=== PATIENT | male | born 1940 ===

== ENCOUNTER 2017-05-28 11:02 | Inpatient (IN) | payer MEDICARE ==
[2017-05-28 11:12] VITALS: BMI 38.4
--- NOTE | 2017-05-28 11:42 | ED PDOC ---
HPI: General Adult Time Seen by Provider: 05/28/17 11:15 Chief Complaint (Nursing): Dizziness/Lightheaded Chief Complaint (Provider): Blood Work-up History Per: Patient, Family (Son) History/Exam Limitations: no limitations Onset/Duration Of Symptoms: Hrs Current Symptoms Are (Timing): Still Present Additional Complaint(s): 77 y/o male with a past medical history of hypertension who presents to the emergency department asymptomatic after sent by the clinic because they need blood work completed before they complete a dialysis on him since he is visiting from [facility] (Patient is well known to PMD who treats him every 2-3 years). Patient states he usually gets dialysis every Saturday, , and Saturday. Denies nausea/vomit, chest pain, dizziness, shortness off breath, or chest pain. No weakness. No fever, cough. No headaches. Nephrology: Dr. Maryanne CALDWELL PMD: Dr. Marek Gupta MD Past Medical History Reviewed: Historical Data, Nursing Documentation, Vital Signs Vital Signs: Last Vital Signs Temp 98.1 F 05/28/17 11:12 Pulse 79 05/28/17 11:12 Resp 18 05/28/17 11:12 BP 157/94 H 05/28/17 11:12 Pulse Ox 98 05/28/17 11:45 - Medical History PMH: HTN, End Stage Renal Disease, Chronic Kidney Disease - Surgical History Other surgeries: dialysis catheter - Family History Family History: States: Unknown Family Hx - Living Arrangements Living Arrangements: With Family - Social History Current smoker - smoking cessation education provided: No Alcohol: None Drugs: Denies - Home Medications Home Medications: Ambulatory Orders Medication Instructions Recorded No Known Home Med 05/28/17 - Allergies Allergies/Adverse Reactions: Allergies Allergy/AdvReac Type Severity Reaction Status Date / Time No Known Allergies Allergy Verified 05/28/17 11:22 Review of Systems ROS Statement: Except As Marked, All Systems Reviewed And Found Negative Cardiovascular: Negative for: Chest Pain Respiratory: Negative for: Shortness of Breath Gastrointestinal: Negative for: Nausea Neurological: Negative for: Dizziness Physical Exam - Reviewed Nursing Documentation Reviewed: Yes Vital Signs Reviewed: Yes - Physical Exam Appears: Positive for: Non-toxic, Uncomfortable Head Exam: Positive for: ATRAUMATIC, NORMAL INSPECTION, NORMOCEPHALIC Skin: Positive for: Normal Color, Warm, Dry Eye Exam: Positive for: Normal appearance, EOMI, PERRL ENT: Positive for: Normal ENT Inspection Neck: Positive for: Normal, Supple Cardiovascular/Chest: Positive for: Regular Rate, Rhythm. Negative for: Murmur Respiratory: Positive for: Normal Breath Sounds. Negative for: Accessory Muscle Use, Respiratory Distress Gastrointestinal/Abdominal: Positive for: Normal Exam, Soft. Negative for: Tenderness Back: Positive for: Normal Inspection. Negative for: L CVA Tenderness, R CVA Tenderness Extremity: Positive for: Normal ROM. Negative for: Tenderness, Pedal Edema Neurologic/Psych: Positive for: Alert, Oriented - Laboratory Results Result Diagrams: 05/28/17 11:40 05/28/17 11:40 Interpretation Of Abn Labs: 5.7 phos; 5.4 K - ECG ECG: Positive for: Interpreted By Me, Viewed By Me ECG Rhythm: Positive for: Nonspecific Changes Interpretation Of Abn EKG: afib O2 Sat by Pulse Oximetry: 98 (RA) Pulse Ox Interpretation: Normal - Progress ED Course And Treament: 1312: Pt. states he has known afib. Does not take meds for it. On no meds. Spoke with Dr. Gupta who will admit to his service and give further orders when pt. reaches floor. Spoke with Dr. Hidalgo who is covering Dr. Mock. Will give dialysis orders on the floor. Agrees with current elevated K tx. Family aware and pt. aware to get anticoagulation. No recent fall, injury or bleeding. Pt. agrees to heparin. Aware of risk of bleeding from it. - Critical Care Total Time (In Min): 30 Documented Critical Care: Time excludes all time spent performint seperately billable procedures Medical Decision Making Medical Decision Making: Time: 11:23 Initial impression: Blood work up Initial plan: --Electrocardiogram STAT --COMP Metabolic Panel --Magnesium STAT --Phosphorous STAT --Troponin I STAT --EKG-ED --CBC w/ differential --IV Insertion --Reevaluation Scribe Attestation: Documented by Kesha Shirley, acting as a scribe for Melvin Finnegan MD. Provider Scribe Attestation: All medical record entries made by the Scribe were at my direction and personally dictated by me. I have reviewed the chart and agree that the record accurately reflects my personal performance of the history, physical exam, medical decision making, and the department course for this patient. I have also personally directed, reviewed, and agree with the discharge instructions and disposition. Disposition - Clinical Impression Clinical Impression: Hyperkalemia, Afib, Renal failure, Hyperphosphatemia Counseled Patient/Family Regarding: Studies Performed, Diagnosis - Disposition Disposition Time: 13:00 Condition: FAIR - Pt Status Changed To: Hospital Disposition Of: Inpatient - Admit Certification Admit to Inpatient:: After my assessment, the patient will require hospitalization for at least two midnights. This is because of the severity of symptoms shown, intensity of services needed, and/or the medical risk in this patient being treated as an outpatient. - POA Present On Arrival: None
[2017-05-28 11:47] LABS: BASO % 0.4 % (0.0-2.0); EOS # 0.7 K/uL (0.0-0.7); EOS % 8.5 % (0.0-4.0); HEMOGLOBIN 10.9 g/dL (12.0-18.0); LYMPH # 1.6 K/uL (1.0-4.3); LYMPH % 17.7 % (20.0-40.0); MEAN CORPUSCULAR HEMOGLOBIN 33.2 pg (27.0-31.0); MEAN CORPUSCULAR HGB CONC 32.5 g/dL (33.0-37.0); MEAN PLATELET VOLUME 8.4 fl (7.2-11.7); MONO # 0.8 K/uL (0.0-0.8); MONO % 8.6 % (0.0-10.0); NEUT # 5.7 K/uL (1.8-7.0); NEUT % 64.8 % (50.0-75.0); NRBC % 0.1 % (0.0-0.0); RBC 3.29 Mil/uL (4.40-5.90); RED CELL DISTRIBUTION WIDTH 17.4 % (11.5-14.5); WHITE BLOOD COUNT 8.8 K/uL (4.8-10.8)
[2017-05-28 11:58] LABS: ALB/GLOB RATIO 1.4 (1.0-2.1); ALBUMIN 4.3 g/dL (3.5-5.0); CALCIUM 9.3 mg/dL (8.4-10.2)
[2017-05-28 12:01] LABS: MAGNESIUM 2.1 MG/DL (1.6-2.3)
[2017-05-28 12:09] LABS: TROPONIN I 0.021 ng/mL (0.00-0.120)
[2017-05-28] MEDS ORDERED: Insulin Regular 100 units/ml SC STA (12:32)
[2017-05-28] MEDS ORDERED: Sod Polystyrene Sulf 15 gm/60 ml Oral Susp PO STA (12:32)
[2017-05-28] MEDS ORDERED: Dextrose 50% SYRINGE Inj (50 ml) IVP ONE (12:32)
[2017-05-28] MEDS ORDERED: Albuterol 0.083% Inhal Sol (2.5 mg/3 mL) UD INH STA (12:33)
[2017-05-28] MEDS ORDERED: Albuterol 0.083% Inhal Sol (2.5 mg/3 mL) UD ONE (13:04)
[2017-05-28] MEDS ORDERED: Insulin Regular 100 units/ml ONE (13:05)
[2017-05-28] MEDS ORDERED: Dextrose 50% SYRINGE Inj (50 ml) ONE (13:05)
[2017-05-28] MEDS ORDERED: Sod Polystyrene Sulf 15 gm/60 ml Oral Susp ONE (13:05)
[2017-05-28] MEDS ORDERED: Heparin 25,000units in D5W 25,000 UNITS/250 ML BAG IV SCH (13:30)
--- NOTE | 2017-05-28 15:17 | CP.PCM.CON ---
History of Present Illness - History of Present Illness History of Present Illness: 77 y/o male with Hx/o ESRD on maintenance HD, HTN, CAD,PTCA/stenting was away for 2 wks visiting [facility] & was receiving dialysis in [facility]. Pt returned yesterday & today went o his dialysis clinic for dialysis & was told that he needed new blood work before they can schedule him for sialysis Pt denies any sob, CP Past Patient History - Past Social History Alcohol: None Drugs: Denies - CARDIAC Hx Cardiac Disorders: Yes (HTN) - PULMONARY Hx Respiratory Disorders: No - NEUROLOGICAL Hx Neurological Disorder: No - HEENT Hx HEENT Problems: No - RENAL Hx Chronic Kidney Disease: Yes (DIALYSIS ,,SAT) - ENDOCRINE/METABOLIC Hx Endocrine Disorders: No - HEMATOLOGICAL/ONCOLOGICAL Hx Blood Disorders: No - INTEGUMENTARY Hx Dermatological Problems: No - MUSCULOSKELETAL/RHEUMATOLOGICAL Hx Musculoskeletal Disorders: No - GENITOURINARY/GYNECOLOGICAL Hx Genitourinary Disorders: No - PSYCHIATRIC Hx Psychophysiologic Disorder: No - SURGICAL HISTORY Hx Surgeries: Yes Other/Comment: LT AV SHUNT (NON FUNCTIONING) - ANESTHESIA Hx Anesthesia: Yes Hx Anesthesia Reactions: No Meds Allergies/Adverse Reactions: Allergies Allergy/AdvReac Type Severity Reaction Status Date / Time No Known Allergies Allergy Verified 05/28/17 11:22 - Medications Medications: Current Medications Heparin Sodium/Dextrose (Heparin 25,000 Units/250ml In D5w) 25,000 units in 250 mls @ 10 mls/hr IV .Q24H [facility] PRN Reason: Protocol Last Admin: 05/28/17 14:50 Dose: 10 mls/hr Physical Exam - Constitutional Appears: No Acute Distress - Head Exam Head Exam: ATRAUMATIC, NORMOCEPHALIC - Eye Exam Eye Exam: Normal appearance Additional comments: No icterus - ENT Exam ENT Exam: Mucous Membranes Moist - Neck Exam Additional comments: JVD + @ 35 degrees - Respiratory Exam Additional comments: Lungs clear - Cardiovascular Exam Cardiovascular Exam: REGULAR RHYTHM - GI/Abdominal Exam Additional comments: Soft obese nontender - Extremities Exam Additional comments: No ECC Results - Vital Signs Recent Vital Signs: Last Vital Signs Temp 98.1 F 05/28/17 11:12 Pulse 82 05/28/17 14:10 Resp 19 05/28/17 14:05 BP 153/92 H 05/28/17 14:10 Pulse Ox 99 05/28/17 14:10 - Labs Result Diagrams: 05/28/17 11:40 05/28/17 11:40 Assessment & Plan - Assessment and Plan (Free Text) Assessment: ESRD on HD HTN CAD Plan: Labs reviewed VS are stable HD is scheduled for today
--- NOTE | 2017-05-28 17:16 | CP.PCM.CON ---
History of Present Illness - History of Present Illness History of Present Illness: 77 y/o H male, h[facility]o HTn, [facility], arrived [place] ER found in A Fib Denies chest pain HD team was called IV heparin was initiated PMH. No h/o GA H/o of 2 strokes in the past Past Patient History - Past Social History Alcohol: None Drugs: Denies - CARDIAC Hx Cardiac Disorders: Yes (HTN) - PULMONARY Hx Respiratory Disorders: No - NEUROLOGICAL Hx Neurological Disorder: No - HEENT Hx HEENT Problems: No - RENAL Hx Chronic Kidney Disease: Yes (DIALYSIS ,,SAT) - ENDOCRINE/METABOLIC Hx Endocrine Disorders: No - HEMATOLOGICAL/ONCOLOGICAL Hx Blood Disorders: No - INTEGUMENTARY Hx Dermatological Problems: No - MUSCULOSKELETAL/RHEUMATOLOGICAL Hx Musculoskeletal Disorders: No - GENITOURINARY/GYNECOLOGICAL Hx Genitourinary Disorders: No - PSYCHIATRIC Hx Psychophysiologic Disorder: No - SURGICAL HISTORY Hx Surgeries: Yes Other/Comment: LT AV SHUNT (NON FUNCTIONING) - ANESTHESIA Hx Anesthesia: Yes Hx Anesthesia Reactions: No Meds Allergies/Adverse Reactions: Allergies Allergy/AdvReac Type Severity Reaction Status Date / Time No Known Allergies Allergy Verified 05/28/17 11:22 - Medications Medications: Current Medications Heparin Sodium/Dextrose (Heparin 25,000 Units/250ml In D5w) 25,000 units in 250 mls @ 10 mls/hr IV .Q24H [facility] PRN Reason: Protocol Last Admin: 05/28/17 14:50 Dose: 10 mls/hr Physical Exam - Constitutional Appears: Well - Head Exam Head Exam: ATRAUMATIC - Neck Exam Neck exam: Positive for: Normal Inspection - Respiratory Exam Respiratory Exam: Rhonchi - Cardiovascular Exam Cardiovascular Exam: Irregular Rhythm - Extremities Exam Extremities exam: Positive for: pedal edema Results - Vital Signs Recent Vital Signs: Last Vital Signs Temp 97.8 F 05/28/17 15:45 Pulse 78 05/28/17 15:45 Resp 20 05/28/17 15:45 BP 143/84 05/28/17 15:45 Pulse Ox 98 05/28/17 15:45 - Labs Result Diagrams: 05/28/17 11:40 05/28/17 11:40 Assessment & Plan - Assessment and Plan (Free Text) Assessment: ESRD A Fib H/O CVA Hyper kalemia Plan: Cont. IV Heparin start ASA 81 mg daily TSH level Echo CXR
[2017-05-28 18:36] LABS: INR 1.5 (0.9-1.2); PROTHROMBIN TIME 17.3 Seconds (9.8-13.1)
--- NOTE | 2017-05-28 20:05 | CARD ---
APPROVED REPORT EKG Measurement Heart [id number] <Conclusion> Atrial fibrillation Left axis deviation Nonspecific intraventricular block Cannot rule out Septal infarct, age undetermined Abnormal ECG
[2017-05-28] MEDS ORDERED: Pneumococcal 23-Valent Vaccine IM ONE (21:00)
[2017-05-29] MEDS ORDERED: Heparin 25,000units in D5W 25,000 UNITS/250 ML BAG IV SCH ×2 (01:00→11:22)
[2017-05-29 07:03] LABS: HEMOGLOBIN 10.8 g/dL (12.0-18.0); MEAN CELL VOLUME 102.5 fl (80.0-94.0); MEAN CORPUSCULAR HEMOGLOBIN 32.9 pg (27.0-31.0); MEAN CORPUSCULAR HGB CONC 32.1 g/dL (33.0-37.0); RBC 3.27 Mil/uL (4.40-5.90)
[2017-05-29 07:21] LABS: ALB/GLOB RATIO 1.3 (1.0-2.1); ALBUMIN 3.9 g/dL (3.5-5.0)
[2017-05-29 07:29] LABS: TROPONIN I 0.031 ng/mL (0.00-0.120)
[2017-05-29 07:34] LABS: T4 5.86 ug/dl (5.5-11.0)
--- NOTE | 2017-05-29 08:39 | CARD ---
APPROVED REPORT EKG Measurement Heart [id number] <Conclusion> Atrial fibrillation Left axis deviation Nonspecific intraventricular block Cannot rule out Anteroseptal infarct, age undetermined Abnormal ECG
--- NOTE | 2017-05-29 10:20 | CP.PCM.PN ---
Subjective - Date & Time of Evaluation Date of Evaluation: 05/29/17 Time of Evaluation: 10:18 - Subjective Subjective: Patient sitting up in chair The son was at the bedside Apparently the patient has been on dialysis in [facility] for period for about 1-1/ 2 years. And he came the day before yesterday and he just came to the emergency room asking for dialysis because he was a due to have dialysis no previous arrangement has been done just patient came from his country asking for dialysis and he was fond to have atrial fibrillation as noted in the record and started on medication Patient required to have emergency hemodialysis yesterday and tolerated completed well and discussed with the son Objective - Vital Signs/Intake and Output Vital Signs (last 24 hours): Temp Pulse Resp BP Pulse Ox 97.8 F 74 18 130/79 96 05/29/17 08:09 05/29/17 08:09 05/29/17 08:09 05/29/17 08:09 05/29/17 08:09 - Medications Medications: Current Medications Aspirin (Aspirin Chewable) 81 mg PO DAILY [facility] Heparin Sodium/Dextrose (Heparin 25,000 Units/250ml In D5w) 25,000 units in 250 mls @ 7 mls/hr IV .Q24H [facility] PRN Reason: Protocol Last Admin: 05/29/17 02:05 Dose: 7 mls/hr Sevelamer HCl (Renagel) 1,600 mg PO TID [facility] - Labs Labs: 05/29/17 05:00 05/29/17 05:00 PT 17.3 Seconds (9.8-13.1) H 05/28/17 17:20 INR 1.5 (0.9-1.2) H 05/28/17 17:20 APTT 40.1 Seconds (25.6-37.1) H D 05/29/17 08:20 - Constitutional Appears: No Acute Distress - ENT Exam ENT Exam: Mucous Membranes Moist - Respiratory Exam Respiratory Exam: NORMAL BREATHING PATTERN. absent: Chest Wall Tenderness - GI/Abdominal Exam GI & Abdominal Exam: Soft, Normal Bowel Sounds - Extremities Exam Extremities Exam: absent: Calf Tenderness - Back Exam Back Exam: absent: CVA tenderness (L), CVA tenderness (R) - Neurological Exam Neurological Exam: Alert Assessment and Plan (1) Afib Status: Chronic (2) Hyperkalemia Status: Acute (3) Chronic kidney disease with end stage renal failure on dialysis Assessment & Plan: Patient with end stage renal disease admitted for dialysis and atrial fibrillation Emergency hemodialysis was done Cardiac follow-up I spoke to his son to arrange with the geriatric social worker for outpatient dialysis unit although patient is visiting here temporary Scheduled for hemodialysis for tomorrow Status: Acute
[2017-05-29 12:56] LABS: HEPATITIS B SURFACE AG NEGATIVE (NEGATIVE)
[2017-05-29 13:01] LABS: HEPATITIS A IGM NEGATIVE (NEGATIVE)
[2017-05-29 13:02] LABS: HEPATITIS B CORE AB NEGATIVE (NEGATIVE)
[2017-05-29 13:14] LABS: HEPATITIS C ANTIBODY NEGATIVE (NEGATIVE)
[2017-05-29 13:43] LABS: IRON 43 ug/dL (49-181)
[2017-05-29 13:52] LABS: % IRON SATURATION 21 % (20-55); TOTAL IRON BINDING CAPACITY 205 ug/dL (250-450)
--- NOTE | 2017-05-29 16:10 | CP.PCM.PN ---
Subjective - Date & Time of Evaluation Date of Evaluation: 05/29/17 Time of Evaluation: 16:08 - Subjective Subjective: no c/p or SOB Off IV heparin Eliquis was started Objective - Vital Signs/Intake and Output Vital Signs (last 24 hours): Temp Pulse Resp BP Pulse Ox 98 F 76 20 157/97 H 100 05/29/17 15:57 05/29/17 15:57 05/29/17 15:57 05/29/17 15:57 05/29/17 15:57 - Medications Medications: Current Medications Apixaban (Eliquis) 5 mg PO BID [facility] PRN Reason: Protocol Aspirin (Aspirin Chewable) 81 mg PO DAILY [facility] Last Admin: 05/29/17 12:51 Dose: 81 mg Sevelamer HCl (Renagel) 1,600 mg PO TID [facility] Last Admin: 05/29/17 12:51 Dose: 1,600 mg - Labs Labs: 05/29/17 05:00 05/29/17 05:00 PT 17.3 Seconds (9.8-13.1) H 05/28/17 17:20 INR 1.5 (0.9-1.2) H 05/28/17 17:20 APTT 40.1 Seconds (25.6-37.1) H D 05/29/17 08:20 - Constitutional Appears: Non-toxic - Head Exam Head Exam: NORMAL INSPECTION - Eye Exam Eye Exam: Normal appearance - ENT Exam ENT Exam: Mucous Membranes Moist - Respiratory Exam Respiratory Exam: NORMAL BREATHING PATTERN - Cardiovascular Exam Cardiovascular Exam: Irregular Rhythm - Back Exam Back Exam: NORMAL INSPECTION Assessment and Plan - Assessment and Plan (Free Text) Assessment: A Fib ESRD Plan: Cont. Apixaban (Eliquis) 5 mg PO BID [facility] PRN Reason: Protocol Aspirin (Aspirin Chewable) 81 mg PO DAILY [facility] Last Admin: 05/29/17 12:51 Dose: 81 mg Sevelamer HCl (Renagel) 1,600 mg PO TID [facility] Last Admin: 05/29/17 12:51 Dose: 1,600 mg I will review Echo study Discussed with FAUSTINA
--- NOTE | 2017-05-29 16:43 | CP.PCM.HP ---
History of Present Illness - History of Present Illness History of Present Illness: CC: ESRD Blood work 77 y/o M, Hx of ESRD, appear in ER [facility] on 05/28/17 for blood work evaluation to receive HD. As per Pt, He arrived from [facility] were he is living on day [employer] He went to the dialysis clinic with symptoms of dizziness, lightheaded, asking for Tx, there after, he was sent to the hospital for blood work in order to be cleared to receive the dialysis on DOA. Currently, he is been treated in [facility] for ESRD on HD T/T/S since about 1 1/2 year. Worsening symptom: On evaluation at ER, Pt was found with A Fib and Hyperkalemia. Pt denied: Fever, chills, bleeding, n/v/d, abdominal pain, urinary symptoms, CP , SOB, cough, sick contact. PMHx: ESRD on HD, CKD, HTN , A Fib , CAD, Hx of CVA . CXR shows: No acute finding. Present on Admission - Present on Admission Any Indicators Present on Admission: No Review of Systems - Constitutional Constitutional: Other (negative) - EENT Eyes: Other (negative) Ears: Other (negative) Nose/Mouth/Throat: Other (negative) - Cardiovascular Cardiovascular: Irregular Heart Rhythm, Lightheadedness - Respiratory Respiratory: Other (negative) - Gastrointestinal Gastrointestinal: Other (negative) - Genitourinary Genitourinary: Other (negative) - Integumentary Integumentary: Other (negative) - Neurological Neurological: Dizziness - Psychiatric Psychiatric: Other (negative) - Endocrine Endocrine: Other (obese) - Hematologic/Lymphatic Hematologic: Other (anemia) Past Patient History - Past Medical History & Family History Past Medical History?: Yes Pertinent Family History: Unknown - Past Social History Alcohol: None Drugs: Denies Home Situation {Lives}: With Family - CARDIAC Hx Cardiac Disorders: Yes (HTN) Hx Atrial Fibrillation: Yes Hx Hypertension: Yes - PULMONARY Hx Respiratory Disorders: No - NEUROLOGICAL Hx Neurological Disorder: No - HEENT Hx HEENT Problems: Yes (UPPP- GONSALO) - RENAL Hx Chronic Kidney Disease: Yes (DIALYSIS ,,SAT) - ENDOCRINE/METABOLIC Hx Endocrine Disorders: No - HEMATOLOGICAL/ONCOLOGICAL Hx Blood Disorders: No - INTEGUMENTARY Hx Dermatological Problems: No - MUSCULOSKELETAL/RHEUMATOLOGICAL Hx Musculoskeletal Disorders: Yes Hx Arthritis: Yes (knees) - GASTROINTESTINAL Hx Gastrointestinal Disorders: No - GENITOURINARY/GYNECOLOGICAL Hx Genitourinary Disorders: No - PSYCHIATRIC Hx Psychophysiologic Disorder: No - SURGICAL HISTORY Hx Surgeries: Yes Other/Comment: LT AV SHUNT (NON FUNCTIONING) , Perma Cath, UPPP - ANESTHESIA Hx Anesthesia: Yes Hx Anesthesia Reactions: No Meds Allergies/Adverse Reactions: Allergies Allergy/AdvReac Type Severity Reaction Status Date / Time No Known Allergies Allergy Verified 05/28/17 11:22 Physical Exam - Constitutional Appears: No Acute Distress - Head Exam Head Exam: NORMAL INSPECTION - Eye Exam Eye Exam: PERRL - ENT Exam Additional comments: UPPP - Neck Exam Neck exam: Positive for: Normal Inspection - Respiratory Exam Respiratory Exam: NORMAL BREATHING PATTERN Additional comments: Ora Cath - Cardiovascular Exam Cardiovascular Exam: Irregular Rhythm - GI/Abdominal Exam GI & Abdominal Exam: Normal Bowel Sounds, Soft - Extremities Exam Extremities exam: Positive for: normal inspection, tenderness (R L knee) - Back Exam Back exam: NORMAL INSPECTION - Neurological Exam Neurological exam: Alert, Oriented x3 - Psychiatric Exam Psychiatric exam: Normal Mood - Skin Skin Exam: Warm Results - Vital Signs Recent Vital Signs: Last Vital Signs Temp 98 F 05/29/17 15:57 Pulse 76 05/29/17 15:57 Resp 20 05/29/17 15:57 BP 157/97 H 05/29/17 15:57 Pulse Ox 100 05/29/17 15:57 reviewed J.PLizabeth - Labs Result Diagrams: 05/30/17 05:00 05/30/17 05:00 Labs: Laboratory Results - last 24 hr 05/28/17 05/28/17 05/28/17 17:20 19:50 19:50 WBC RBC Hgb Hct MCV MCH MCHC RDW Plt Count PT 17.3 H INR 1.5 H APTT Sodium Potassium Chloride Carbon Dioxide Anion Gap BUN Creatinine Est GFR ( Amer) Est GFR (Non-Af Amer) Random Glucose Calcium Phosphorus Iron TIBC % Saturation Total Bilirubin AST ALT Alkaline Phosphatase Troponin I 0.0240 Total Protein Albumin Globulin Albumin/Globulin Ratio Triglycerides Cholesterol LDL Cholesterol Direct HDL Cholesterol Thyroxine (T4) TSH 3rd Generation Hepatitis A IgM Ab Negative Hep Bs Antigen Negative Hep B Core IgM Ab Negative Hepatitis C Antibody Negative 05/28/17 05/28/17 05/29/17 19:50 23:30 05:00 WBC 9.0 RBC 3.27 L Hgb 10.8 L Hct 33.6 L MCV 102.5 H MCH 32.9 H MCHC 32.1 L RDW 17.0 H Plt Count 206 PT INR APTT > 400.0 H* 49.0 H D Sodium Potassium Chloride Carbon Dioxide Anion Gap BUN Creatinine Est GFR ( Amer) Est GFR (Non-Af Amer) Random Glucose Calcium Phosphorus Iron TIBC % Saturation Total Bilirubin AST ALT Alkaline Phosphatase Troponin I Total Protein Albumin Globulin Albumin/Globulin Ratio Triglycerides Cholesterol LDL Cholesterol Direct HDL Cholesterol Thyroxine (T4) TSH 3rd Generation Hepatitis A IgM Ab Hep Bs Antigen Hep B Core IgM Ab Hepatitis C Antibody 05/29/17 05/29/17 05/29/17 05:00 08:20 09:30 WBC RBC Hgb Hct MCV MCH MCHC RDW Plt Count PT INR APTT 40.1 H D Sodium 142 Potassium 4.3 Chloride 102 Carbon Dioxide 26 Anion Gap 18 BUN 40 H Creatinine 8.5 H* D Est GFR ( Amer) 7 Est GFR (Non-Af Amer) 6 Random Glucose 88 Calcium 9.0 Phosphorus 6.4 H Iron TIBC % Saturation Total Bilirubin 0.7 AST 26 ALT 35 Alkaline Phosphatase 54 Troponin I 0.0310 Total Protein 6.9 Albumin 3.9 Globulin 3.0 Albumin/Globulin Ratio 1.3 Triglycerides 72 Cholesterol 90 LDL Cholesterol Direct 44 HDL Cholesterol 28 L Thyroxine (T4) 5.86 TSH 3rd Generation 1.40 Hepatitis A IgM Ab Hep Bs Antigen Hep B Core IgM Ab Hepatitis C Antibody 05/29/17 10:00 WBC RBC Hgb Hct MCV MCH MCHC RDW Plt Count PT INR APTT Sodium Potassium Chloride Carbon Dioxide Anion Gap BUN Creatinine Est GFR ( Amer) Est GFR (Non-Af Amer) Random Glucose Calcium Phosphorus Iron 43 L TIBC 205 L % Saturation 21 Total Bilirubin AST ALT Alkaline Phosphatase Troponin I Total Protein Albumin Globulin Albumin/Globulin Ratio Triglycerides Cholesterol LDL Cholesterol Direct HDL Cholesterol Thyroxine (T4) TSH 3rd Generation Hepatitis A IgM Ab Hep Bs Antigen Hep B Core IgM Ab Hepatitis C Antibody reviewed J.P. - EKG Data EKG comments: reviewed J.P. - Imaging and Cardiology Chest x-ray Status: Report reviewed by me (J.P.) Assessment & Plan (1) Chronic kidney disease with end stage renal failure on dialysis Status: Acute Priority: High (2) Hyperkalemia Status: Acute Priority: High (3) Afib Status: Acute Priority: High (4) HTN (hypertension) Status: Chronic Priority: Medium (5) Knee pain, bilateral Status: Chronic - Assessment and Plan (Free Text) Plan: DC Heparin today, will continue with Eliquis, asa 81 mg, Renagel, Cardiology and Nephrology consult appreciated. PT beryl. - Date & Time Date: 05/29/17 Time: 12:30
--- NOTE | 2017-05-29 16:43 | RAD ---
HISTORY: For HD COMPARISON: No prior. FINDINGS: The right central venous catheter terminates at the cavoatrial junction. LUNGS: The lungs are clear. PLEURA: No significant pleural effusion identified, no pneumothorax apparent. CARDIOVASCULAR: Normal. OSSEOUS STRUCTURES: No significant abnormalities. VISUALIZED UPPER ABDOMEN: Normal. OTHER FINDINGS: There is elevation of the right hemidiaphragm. IMPRESSION: No acute findings. The right dialysis catheter terminates at the cavoatrial junction.
[2017-05-30 05:53] LABS: HEMOGLOBIN 10.8 g/dL (12.0-18.0); MEAN CELL VOLUME 102.5 fl (80.0-94.0); MEAN CORPUSCULAR HEMOGLOBIN 32.8 pg (27.0-31.0); RBC 3.3 Mil/uL (4.40-5.90); RED CELL DISTRIBUTION WIDTH 16.9 % (11.5-14.5)
[2017-05-30 06:19] LABS: CALCIUM 8.7 mg/dL (8.4-10.2)
--- NOTE | 2017-05-30 10:57 | CP.PCM.PN ---
Subjective - Date & Time of Evaluation Date of Evaluation: 05/30/17 Time of Evaluation: 10:49 - Subjective Subjective: Patient is out of bed in the chair Appeared to be comfortable No chest pain no shortness of breath the son at the bedside his name Que Objective - Vital Signs/Intake and Output Vital Signs (last 24 hours): Temp Pulse Resp BP Pulse Ox 97.6 F 66 18 130/80 97 05/30/17 07:59 05/30/17 07:59 05/30/17 07:59 05/30/17 07:59 05/30/17 07:59 - Medications Medications: Current Medications Acetaminophen (Tylenol 325mg Tab) 650 mg PO Q4 PRN PRN Reason: Pain, Mild (1-3) Last Admin: 05/29/17 22:21 Dose: 650 mg Apixaban (Eliquis) 5 mg PO BID [facility] PRN Reason: Protocol Last Admin: 05/30/17 09:06 Dose: 5 mg Aspirin (Aspirin Chewable) 81 mg PO DAILY [facility] Last Admin: 05/30/17 09:07 Dose: 81 mg Sevelamer HCl (Renagel) 1,600 mg PO TID [facility] Last Admin: 05/30/17 09:07 Dose: 1,600 mg - Labs Labs: 05/30/17 05:00 05/30/17 05:00 PT 17.3 Seconds (9.8-13.1) H 05/28/17 17:20 INR 1.5 (0.9-1.2) H 05/28/17 17:20 APTT 40.1 Seconds (25.6-37.1) H D 05/29/17 08:20 - Constitutional Appears: No Acute Distress - ENT Exam ENT Exam: Mucous Membranes Moist - Respiratory Exam Respiratory Exam: absent: Chest Wall Tenderness - Cardiovascular Exam Cardiovascular Exam: absent: JVD - GI/Abdominal Exam GI & Abdominal Exam: absent: Guarding - Back Exam Back Exam: absent: CVA tenderness (L) - Neurological Exam Neurological Exam: Alert - Skin Skin Exam: absent: Abrasion, Cyanosis Assessment and Plan (1) Afib Status: Acute (2) Hyperkalemia Status: Acute (3) Chronic kidney disease with end stage renal failure on dialysis Assessment & Plan: Patient admitted with atrial fibrillation and rapid treated initially with end- stage renal disease who came from [facility] Patient tolerating hemodialysis well and is scheduled to have one now Sodium 138 Potassium 2 mEq Bicarbonate bath 34 Also I spoke to the son and left a message with social worker clinical for arrangement as outpatient at [facility] dialysis Status: Acute
--- NOTE | 2017-05-30 11:08 | CARD ---
APPROVED REPORT EXAM: Two-dimensional and M-mode echocardiogram with Doppler and color Doppler. Other Information Quality : AverageRhythm : Atrial Fibrillation INDICATION Atrial Fibrillation 2D DIMENSIONS IVSd1.76 (0.7-1.1cm)LVDd5.00 (3.9-5.9cm) PWd0.98 (0.7-1.1cm)IVSs1.92 (0.8-1.2cm) LVDs4.96 (2.5-4.0cm)FS (%) 0.8 % PWs0.90 (0.8-1.2cm) M-Mode DIMENSIONS Left Atrium (MM)5.18 (2.5-4.0cm)IVSd1.13 (0.7-1.1cm) Aortic Root4.37 (2.2-3.7cm)LVDd5.22 (4.0-5.6cm) Aortic Cusp Exc.1.98 (1.5-2.0cm)PWd1.01 (0.7-1.1cm) IVSs1.25 cmFS (%) 19 % LVDs4.21 (2.0-3.8cm)PWs0.93 cm Mitral Valve E/A ratio0.0 TDI E/Lateral E'0.0E/Medial E'0.0 Tricuspid Valve TR Peak [id number] [id number] Peak Gr.13mmHg [id number] LEFT VENTRICLE The left ventricle is normal size. There is moderate concentric left ventricular hypertrophy. The systolic function is moderately impaired. The Ejection Fraction is 20-25%. There is global hypokinesis of the left ventricle. The left ventricular diastolic function is normal. No left ventricle thrombus noted on this study. There is no ventricular septal defect visualized. There is no mass noted in the left ventricle. RIGHT VENTRICLE The right ventricle is normal size. There is normal right ventricular wall thickness. The right ventricular systolic function is normal. ATRIA The left atrium is moderately dilated. The right atrium size is normal. The interatrial septum is intact with no evidence for an atrial septal defect. AORTIC VALVE The aortic valve is normal in structure and function. No aortic regurgitation is present. There is no aortic valvular stenosis. There is no aortic valvular vegetation. MITRAL VALVE The mitral valve is normal in structure and function. There is no evidence of mitral valve prolapse. There is no mitral valve stenosis. Mitral regurgitation is mild. TRICUSPID VALVE The tricuspid valve is normal in structure and function. There is mild to moderate tricuspid regurgitation. There is no tricuspid valve prolapse or vegetation. There is no tricuspid valve stenosis. PULMONIC VALVE The pulmonary valve is normal in structure and function. There is no pulmonic valvular regurgitation. There is no pulmonic valvular stenosis. GREAT VESSELS The aortic root is normal in size. The IVC is normal in size and collapses >50% with inspiration. PERICARDIAL EFFUSION The pericardium appears normal. There is no pleural effusion. <Conclusion> The left ventricle is normal size. There is moderate concentric left ventricular hypertrophy. The systolic function is moderately impaired. The Ejection Fraction is 20-25%. The left atrium is moderately dilated. Mitral regurgitation is mild. There is mild to moderate tricuspid regurgitation.
[2017-05-30] MEDS: Oxycodone/Acetaminophen 5/325 mg Tab PO PRN (13:23)
--- NOTE | 2017-05-30 15:50 | RAD ---
PROCEDURE: Bilateral Knee Radiographs. HISTORY: bilateral knee Pain. No history of recent/ related trauma provided COMPARISON: None. FINDINGS: BONES: Right Knee: No acute fracture. Proliferative hypertrophic changes emanating from the femoral condyle and tibial plateau Left Knee: No acute fracture. Proliferative hypertrophic changes emanating from the femoral condyle and tibial plateau JOINTS: Right Knee: Degenerative changes primarily affecting the medial compartment. Left knee: Less severe degenerative changes compared to the right side also primarily affecting the medial compartment. SOFT TISSUES: Right Knee: Normal. Left Knee: Normal. JOINT EFFUSION: Right Knee: None. Left Knee: None. OTHER FINDINGS: None. IMPRESSION: Asymmetrical degenerative changes right greater than left primarily affecting medial compartment. No acute findings related to/accounting for the clinical presentation.
--- NOTE | 2017-05-30 16:40 | CP.PCM.PN ---
Subjective - Date & Time of Evaluation Date of Evaluation: 05/30/17 Time of Evaluation: 13:00 - Subjective Subjective: SOB improved Bilateral Knee pain Knee XR degenerative changes Objective - Vital Signs/Intake and Output Vital Signs (last 24 hours): Temp Pulse Resp BP Pulse Ox 97.7 F 62 20 130/92 H 100 05/30/17 16:00 05/30/17 16:00 05/30/17 16:00 05/30/17 16:00 05/30/17 16:00 - Medications Medications: Current Medications Acetaminophen (Tylenol 325mg Tab) 650 mg PO Q4 PRN PRN Reason: Pain, Mild (1-3) Last Admin: 05/29/17 22:21 Dose: 650 mg Apixaban (Eliquis) 5 mg PO BID [facility] PRN Reason: Protocol Last Admin: 05/30/17 09:06 Dose: 5 mg Aspirin (Aspirin Chewable) 81 mg PO DAILY [facility] Last Admin: 05/30/17 09:07 Dose: 81 mg Oxycodone/Acetaminophen (Percocet 5/325 Mg Tab) 1 tab PO Q8 PRN PRN Reason: Pain, severe (8-10) Stop: 06/02/17 17:01 Last Admin: 05/30/17 13:23 Dose: 1 tab Sevelamer HCl (Renagel) 1,600 mg PO TID [facility] Last Admin: 05/30/17 13:20 Dose: 1,600 mg - Labs Labs: 05/30/17 05:00 05/30/17 05:00 PT 17.3 Seconds (9.8-13.1) H 05/28/17 17:20 INR 1.5 (0.9-1.2) H 05/28/17 17:20 APTT 40.1 Seconds (25.6-37.1) H D 05/29/17 08:20 - Head Exam Head Exam: NORMAL INSPECTION - Eye Exam Eye Exam: Normal appearance - ENT Exam ENT Exam: Mucous Membranes Moist - Respiratory Exam Respiratory Exam: NORMAL BREATHING PATTERN - Cardiovascular Exam Cardiovascular Exam: Irregular Rhythm - GI/Abdominal Exam GI & Abdominal Exam: Normal Bowel Sounds - Extremities Exam Extremities Exam: Normal Inspection Assessment and Plan - Assessment and Plan (Free Text) Assessment: Chronic A Fib ESRS Knee Osteoarthritis Anemia h/o CVA systolic CHf EF 20-25% Plan: Cont . Acetaminophen (Tylenol 325mg Tab) 650 mg PO Q4 PRN PRN Reason: Pain, Mild (1-3) Last Admin: 05/29/17 22:21 Dose: 650 mg Apixaban (Eliquis) 5 mg PO BID [facility] PRN Reason: Protocol Last Admin: 05/30/17 09:06 Dose: 5 mg Aspirin (Aspirin Chewable) 81 mg PO DAILY [facility] Last Admin: 05/30/17 09:07 Dose: 81 mg Oxycodone/Acetaminophen (Percocet 5/325 Mg Tab) 1 tab PO Q8 PRN PRN Reason: Pain, severe (8-10) Stop: 06/02/17 17:01 Last Admin: 05/30/17 13:23 Dose: 1 tab Sevelamer HCl (Renagel) 1,600 mg PO TID [facility] Last Admin: 05/30/17 13:20 Dose: 1,600 mg Start Coreg and Enalapril therapy
--- NOTE | 2017-05-30 17:41 | CP.PCM.PN ---
Subjective - Date & Time of Evaluation Date of Evaluation: 05/30/17 Time of Evaluation: 11:10 - Subjective Subjective: F/U ESKD on HD Pt c/o of pain in R-L knee with difficulty to walk, no chest pain,. no SOB, no chest congestion. Objective - Vital Signs/Intake and Output Vital Signs (last 24 hours): Temp Pulse Resp BP Pulse Ox 97.7 F 62 20 130/92 H 100 05/30/17 17:00 05/30/17 17:00 05/30/17 17:00 05/30/17 17:00 05/30/17 17:00 - Medications Medications: Current Medications Acetaminophen (Tylenol 325mg Tab) 650 mg PO Q4 PRN PRN Reason: Pain, Mild (1-3) Last Admin: 05/29/17 22:21 Dose: 650 mg Apixaban (Eliquis) 5 mg PO BID [facility] PRN Reason: Protocol Last Admin: 05/30/17 17:03 Dose: 5 mg Aspirin (Aspirin Chewable) 81 mg PO DAILY [facility] Last Admin: 05/30/17 09:07 Dose: 81 mg Carvedilol (Coreg) 3.125 mg PO Q12 [facility] Enalapril Maleate (Vasotec) 2.5 mg PO DAILY [facility] Last Admin: 05/30/17 17:02 Dose: Not Given Oxycodone/Acetaminophen (Percocet 5/325 Mg Tab) 1 tab PO Q8 PRN PRN Reason: Pain, severe (8-10) Stop: 06/02/17 17:01 Last Admin: 05/30/17 13:23 Dose: 1 tab Sevelamer HCl (Renagel) 1,600 mg PO TID [facility] Last Admin: 05/30/17 17:03 Dose: 1,600 mg - Labs Labs: 05/30/17 05:00 05/30/17 05:00 PT 17.3 Seconds (9.8-13.1) H 05/28/17 17:20 INR 1.5 (0.9-1.2) H 05/28/17 17:20 APTT 40.1 Seconds (25.6-37.1) H D 05/29/17 08:20 - Constitutional Appears: No Acute Distress - Head Exam Head Exam: NORMAL INSPECTION - Eye Exam Eye Exam: PERRL - ENT Exam Additional comments: UPPP - Neck Exam Neck Exam: Normal Inspection - Respiratory Exam Respiratory Exam: NORMAL BREATHING PATTERN - Cardiovascular Exam Cardiovascular Exam: Irregular Rhythm - GI/Abdominal Exam GI & Abdominal Exam: Soft, Normal Bowel Sounds - Extremities Exam Extremities Exam: Tenderness (R-L knee.) - Back Exam Back Exam: NORMAL INSPECTION - Neurological Exam Neurological Exam: Alert, Oriented x3 - Psychiatric Exam Psychiatric exam: Normal Mood - Skin Skin Exam: Warm Assessment and Plan (1) Chronic kidney disease with end stage renal failure on dialysis Status: Acute (2) Hyperkalemia Status: Resolved (3) Afib Status: Acute (4) HTN (hypertension) Status: Chronic (5) Systolic CHF, chronic Status: Chronic (6) Knee pain, bilateral Status: Chronic - Assessment and Plan (Free Text) Plan: ECHO LVEF 20-25% , Continue HD, Eliquis , Coreg , Enalapril , Percocet , F/U Knees X-Ray.
[2017-05-31 08:03] VITALS: RESP 18
[2017-05-31] MEDS: Oxycodone/Acetaminophen 5/325 mg Tab PO PRN (12:32)
[2017-05-31 12:34] VITALS: BP 93/63; PULSE 78; TEMP 98.1; O2SAT 100
--- NOTE | 2017-05-31 13:03 | CP.PCM.PN ---
Subjective - Date & Time of Evaluation Date of Evaluation: 05/31/17 Time of Evaluation: 13:01 - Subjective Subjective: Patient is out of bed He feels good No shortness of breath no difficulty breathing no wheezing Appetite is good Patient completed hemodialysis yesterday and tolerated well Objective - Vital Signs/Intake and Output Vital Signs (last 24 hours): Temp Pulse Resp BP Pulse Ox 98.1 F 78 18 93/63 L 100 05/31/17 12:00 05/31/17 12:00 05/31/17 12:00 05/31/17 12:00 05/31/17 12:00 - Medications Medications: Current Medications Acetaminophen (Tylenol 325mg Tab) 650 mg PO Q4 PRN PRN Reason: Pain, Mild (1-3) Last Admin: 05/29/17 22:21 Dose: 650 mg Apixaban (Eliquis) 5 mg PO BID [facility] PRN Reason: Protocol Last Admin: 05/31/17 10:12 Dose: 5 mg Aspirin (Aspirin Chewable) 81 mg PO DAILY [facility] Last Admin: 05/31/17 10:12 Dose: 81 mg Carvedilol (Coreg) 3.125 mg PO Q12 [facility] Last Admin: 05/31/17 10:13 Dose: 3.125 mg Enalapril Maleate (Vasotec) 2.5 mg PO DAILY [facility] Last Admin: 05/31/17 10:12 Dose: 2.5 mg Oxycodone/Acetaminophen (Percocet 5/325 Mg Tab) 1 tab PO Q8 PRN PRN Reason: Pain, severe (8-10) Stop: 06/02/17 17:01 Last Admin: 05/31/17 12:32 Dose: 1 tab Sevelamer HCl (Renagel) 1,600 mg PO TID [facility] Last Admin: 05/31/17 12:30 Dose: 1,600 mg - Labs Labs: 05/30/17 05:00 05/30/17 05:00 PT 17.3 Seconds (9.8-13.1) H 05/28/17 17:20 INR 1.5 (0.9-1.2) H 05/28/17 17:20 APTT 40.1 Seconds (25.6-37.1) H D 05/29/17 08:20 - Constitutional Appears: No Acute Distress - Eye Exam Eye Exam: Normal appearance - ENT Exam ENT Exam: Mucous Membranes Moist - Respiratory Exam Respiratory Exam: NORMAL BREATHING PATTERN - Cardiovascular Exam Cardiovascular Exam: absent: JVD, Rubs - GI/Abdominal Exam GI & Abdominal Exam: Normal Bowel Sounds - Extremities Exam Extremities Exam: absent: Calf Tenderness - Back Exam Back Exam: absent: CVA tenderness (L), CVA tenderness (R) - Neurological Exam Neurological Exam: Alert Assessment and Plan (1) Afib Status: Acute (2) Hyperkalemia Status: Resolved (3) Chronic kidney disease with end stage renal failure on dialysis Assessment & Plan: Patient was accepted as outpatient at the dialysis unit in [place] he will have dialysis tomorrow as outpatient and MWF Continue the same medication that he is taken 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
--- NOTE | 2017-05-31 15:40 | CP.PCM.PN ---
Subjective - Date & Time of Evaluation Date of Evaluation: 05/31/17 Time of Evaluation: 15:37 - Subjective Subjective: SOB improved No c/p Objective - Vital Signs/Intake and Output Vital Signs (last 24 hours): Temp Pulse Resp BP Pulse Ox 98.1 F 78 18 93/63 L 100 05/31/17 12:00 05/31/17 12:00 05/31/17 12:00 05/31/17 12:00 05/31/17 12:00 - Medications Medications: Current Medications Acetaminophen (Tylenol 325mg Tab) 650 mg PO Q4 PRN PRN Reason: Pain, Mild (1-3) Last Admin: 05/29/17 22:21 Dose: 650 mg Apixaban (Eliquis) 5 mg PO BID [facility] PRN Reason: Protocol Last Admin: 05/31/17 10:12 Dose: 5 mg Aspirin (Aspirin Chewable) 81 mg PO DAILY [facility] Last Admin: 05/31/17 10:12 Dose: 81 mg Carvedilol (Coreg) 3.125 mg PO Q12 [facility] Last Admin: 05/31/17 10:13 Dose: 3.125 mg Enalapril Maleate (Vasotec) 2.5 mg PO DAILY [facility] Last Admin: 05/31/17 10:12 Dose: 2.5 mg Oxycodone/Acetaminophen (Percocet 5/325 Mg Tab) 1 tab PO Q8 PRN PRN Reason: Pain, severe (8-10) Stop: 06/02/17 17:01 Last Admin: 05/31/17 12:32 Dose: 1 tab Sevelamer HCl (Renagel) 1,600 mg PO TID [facility] Last Admin: 05/31/17 12:30 Dose: 1,600 mg - Labs Labs: 05/30/17 05:00 05/30/17 05:00 PT 17.3 Seconds (9.8-13.1) H 05/28/17 17:20 INR 1.5 (0.9-1.2) H 05/28/17 17:20 APTT 40.1 Seconds (25.6-37.1) H D 05/29/17 08:20 - Head Exam Head Exam: NORMOCEPHALIC - ENT Exam ENT Exam: Normal Exam - Neck Exam Neck Exam: Normal Inspection - Respiratory Exam Respiratory Exam: Clear to Ausculation Bilateral - Cardiovascular Exam Cardiovascular Exam: Irregular Rhythm - Extremities Exam Extremities Exam: Normal Inspection Assessment and Plan - Assessment and Plan (Free Text) Assessment: CHF A Fib ESRD Plan: Cont Acetaminophen (Tylenol 325mg Tab) 650 mg PO Q4 PRN PRN Reason: Pain, Mild (1-3) Last Admin: 05/29/17 22:21 Dose: 650 mg Apixaban (Eliquis) 5 mg PO BID [facility] PRN Reason: Protocol Last Admin: 05/31/17 10:12 Dose: 5 mg Aspirin (Aspirin Chewable) 81 mg PO DAILY [facility] Last Admin: 05/31/17 10:12 Dose: 81 mg Carvedilol (Coreg) 3.125 mg PO Q12 [facility] Last Admin: 05/31/17 10:13 Dose: 3.125 mg Enalapril Maleate (Vasotec) 2.5 mg PO DAILY [facility] Last Admin: 05/31/17 10:12 Dose: 2.5 mg Oxycodone/Acetaminophen (Percocet 5/325 Mg Tab) 1 tab PO Q8 PRN PRN Reason: Pain, severe (8-10) Stop: 06/02/17 17:01 Last Admin: 05/31/17 12:32 Dose: 1 tab Sevelamer HCl (Renagel) 1,600 mg PO TID [facility] Last Admin: 05/31/17 12:30 Dose: 1,600 mg Patient agreed for Cath Saturday at [facility] discussed with Dr. Gupta
--- NOTE | 2017-05-31 19:34 | CP.PCM.PN ---
Subjective - Date & Time of Evaluation Date of Evaluation: 05/31/17 Time of Evaluation: 11:30 - Subjective Subjective: F/U ESRD on HD. Pt c/o of pain in R knee, no SOB, no chest pain, no MCCONNELL, no A/D. Objective - Vital Signs/Intake and Output Vital Signs (last 24 hours): Temp Pulse Resp BP Pulse Ox 98.1 F 78 18 93/63 L 100 05/31/17 12:00 05/31/17 12:00 05/31/17 12:00 05/31/17 12:00 05/31/17 12:00 - Labs Labs: 05/30/17 05:00 05/30/17 05:00 PT 17.3 Seconds (9.8-13.1) H 05/28/17 17:20 INR 1.5 (0.9-1.2) H 05/28/17 17:20 APTT 40.1 Seconds (25.6-37.1) H D 05/29/17 08:20 - Constitutional Appears: No Acute Distress, Chronically Ill - Head Exam Head Exam: NORMAL INSPECTION - Eye Exam Eye Exam: PERRL - ENT Exam ENT Exam: Normal Oropharynx - Neck Exam Neck Exam: Normal Inspection - Respiratory Exam Respiratory Exam: NORMAL BREATHING PATTERN - Cardiovascular Exam Cardiovascular Exam: Irregular Rhythm - GI/Abdominal Exam GI & Abdominal Exam: Soft, Normal Bowel Sounds - Extremities Exam Extremities Exam: Tenderness (R-L knee) - Back Exam Back Exam: NORMAL INSPECTION - Neurological Exam Neurological Exam: Alert, Oriented x3. absent: Motor Sensory Deficit - Psychiatric Exam Psychiatric exam: Normal Mood - Skin Skin Exam: Warm Assessment and Plan (1) Chronic kidney disease with end stage renal failure on dialysis Status: Acute (2) Hyperkalemia Status: Resolved (3) Afib Status: Acute (4) HTN (hypertension) Status: Chronic (5) Systolic CHF, chronic Status: Chronic (6) Knee pain, bilateral Status: Chronic - Assessment and Plan (Free Text) Plan: Pt had HD yesterday, discussed with Cardiology Pt to be scheduled for Cardiac Cath next Saturday, to have HD after Cardiac Cath, see instruction medication sheet, call my office for appt next week, continue HD with Dr Mock.
--- NOTE | 2017-06-10 13:07 | CP.PCM.DIS ---
Provider - Provider Date of Admission: 05/28/17 13:19 Attending physician: Marek Gupta MD Consults: Cardiology and Nephrology. Time Spent in preparation of Discharge (in minutes): 25 Diagnosis - Discharge Diagnosis (1) Chronic kidney disease with end stage renal failure on dialysis Status: Acute Priority: High (2) Hyperkalemia Status: Resolved Priority: High (3) Afib Status: Acute Priority: High (4) HTN (hypertension) Status: Chronic Priority: Medium (5) Systolic CHF, chronic Status: Chronic (6) Knee pain, bilateral Status: Chronic Hospital Course - Lab Results Lab Results: Most Recent Lab Values WBC 9.0 K/uL (4.8-10.8) 05/30/17 05:00 RBC 3.30 Mil/uL (4.40-5.90) L 05/30/17 05:00 Hgb 10.8 g/dL (12.0-18.0) L 05/30/17 05:00 Hct 33.8 % (35.0-51.0) L 05/30/17 05:00 MCV 102.5 fl (80.0-94.0) H 05/30/17 05:00 MCH 32.8 pg (27.0-31.0) H 05/30/17 05:00 MCHC 32.0 g/dL (33.0-37.0) L 05/30/17 05:00 RDW 16.9 % (11.5-14.5) H 05/30/17 05:00 Plt Count 222 K/uL (130-400) 05/30/17 05:00 MPV 8.4 fl (7.2-11.7) 05/28/17 11:40 Neut % (Auto) 64.8 % (50.0-75.0) 05/28/17 11:40 Lymph % (Auto) 17.7 % (20.0-40.0) L 05/28/17 11:40 Brown % (Auto) 8.6 % (0.0-10.0) 05/28/17 11:40 Eos % (Auto) 8.5 % (0.0-4.0) H 05/28/17 11:40 Baso % (Auto) 0.4 % (0.0-2.0) 05/28/17 11:40 Neut # 5.7 K/uL (1.8-7.0) 05/28/17 11:40 Lymph # 1.6 K/uL (1.0-4.3) 05/28/17 11:40 Brown # 0.8 K/uL (0.0-0.8) 05/28/17 11:40 Eos # 0.7 K/uL (0.0-0.7) 05/28/17 11:40 Baso # 0.0 K/uL (0.0-0.2) 05/28/17 11:40 PT 17.3 Seconds (9.8-13.1) H 05/28/17 17:20 INR 1.5 (0.9-1.2) H 05/28/17 17:20 APTT 40.1 Seconds (25.6-37.1) H D 05/29/17 08:20 Sodium 138 mmol/l (132-148) 05/30/17 05:00 Potassium 4.6 MMOL/L (3.6-5.0) 05/30/17 05:00 Chloride 100 mmol/L (98-107) 05/30/17 05:00 Carbon Dioxide 23 mmol/L (22-30) 05/30/17 05:00 Anion Gap 20 (10-20) 05/30/17 05:00 BUN 56 mg/dl (9-20) H 05/30/17 05:00 Creatinine 10.4 mg/dL (0.8-1.5) H* D 05/30/17 05:00 Est GFR ( Amer) 6 05/30/17 05:00 Est GFR (Non-Af Amer) 5 05/30/17 05:00 Random Glucose 83 mg/dL (75-110) 05/30/17 05:00 Calcium 8.7 mg/dL (8.4-10.2) 05/30/17 05:00 Phosphorus 6.4 mg/dl (2.5-4.5) H 05/29/17 09:30 Magnesium 2.1 MG/DL (1.6-2.3) 05/28/17 11:23 Iron 43 ug/dL (49-181) L 05/29/17 10:00 TIBC 205 ug/dL (250-450) L 05/29/17 10:00 % Saturation 21 % (20-55) 05/29/17 10:00 Ferritin 261.0 ng/mL 05/30/17 05:00 Total Bilirubin 0.7 mg/dl (0.2-1.3) 05/29/17 05:00 AST 26 U/L (17-59) 05/29/17 05:00 ALT 35 U/L (21-72) 05/29/17 05:00 Alkaline Phosphatase 54 U/L (38-126) 05/29/17 05:00 Troponin I 0.0310 ng/mL (0.00-0.120) 05/29/17 05:00 Total Protein 6.9 G/DL (6.3-8.2) 05/29/17 05:00 Albumin 3.9 g/dL (3.5-5.0) 05/29/17 05:00 Globulin 3.0 gm/dL (2.2-3.9) 05/29/17 05:00 Albumin/Globulin Ratio 1.3 (1.0-2.1) 05/29/17 05:00 Triglycerides 72 mg/DL (0-149) 05/29/17 05:00 Cholesterol 90 mg/dL (0-199) 05/29/17 05:00 LDL Cholesterol Direct 44 mg/dL (0-129) 05/29/17 05:00 HDL Cholesterol 28 MG/DL (30-70) L 05/29/17 05:00 Thyroxine (T4) 5.86 ug/dl (5.5-11.0) 05/29/17 05:00 TSH 3rd Generation 1.40 mIU/ML (0.46-4.68) 05/29/17 05:00 PTH Intact Whole Molec 141 pg/mL (14-64) H 05/29/17 10:00 Hepatitis A IgM Ab Negative (NEGATIVE) 05/28/17 19:50 Hep Bs Antigen Negative (NEGATIVE) 05/28/17 19:50 Hep B Core IgM Ab Negative (NEGATIVE) 05/28/17 19:50 Hepatitis C Antibody Negative (NEGATIVE) 05/28/17 19:50 - Date & Time of H&P Date of H&P: 05/29/17 Time of H&P: 12:30 Discharge Exam - Head Exam Head Exam: NORMAL INSPECTION Discharge Plan - Discharge Medications Prescriptions: Aspirin [Aspirin Chewable] 81 mg PO DAILY #30 Carvedilol [Coreg] 3.125 mg PO Q12 #30 tab Apixaban [Eliquis] 5 mg PO BID #60 tab Sevelamer [Renagel] 1,600 mg PO TID #60 tab Enalapril Maleate [Vasotec] 2.5 mg PO DAILY #30 tab - Follow Up Plan Condition: FAIR Disposition: HOME/ ROUTINE Patient education suggested?: Yes Additional Instructions: patient cleared for discharge to Home today by and pt. set up for dialysis tomorrow f/u with and outpatient Rx for all meds provided Follow up with Dr. Osullivan [address] [place] [address], [address] [place] [address] Do not take Medication Eliquis 5mg PO Twice A Day until 06/05/17 Referrals: Emery Mock MD [Staff Provider] - Marek Gupta MD [Family Provider] -
== END 2017-05-31 15:30 | disposition home or self-care (01) | DRG 291 ==
LOC: H.ER 11:02 → H.ERHOLD 13:19 → H.TEL 15:21
PROVIDERS: ADMIT Internal Medicine Pulmonary Disease; ATTEND Internal Medicine Pulmonary Disease
PROC: 5A1D60Z (ICD-10-PCS; principal; 2017-05-28)
DX: I13.2 Hypertensive heart and chronic kidney disease with heart failure and with stage 5 chronic kidney disease, or end stage renal disease (principal); N18.6 End stage renal disease; E87.5 Hyperkalemia; I50.22 Chronic systolic (congestive) heart failure; D64.9 Anemia, unspecified; E83.39 Other disorders of phosphorus metabolism; I48.2 Chronic atrial fibrillation; I25.10 Atherosclerotic heart disease of native coronary artery without angina pectoris; M17.9 Osteoarthritis of knee, unspecified; Z86.73 Personal history of transient ischemic attack (TIA), and cerebral infarction without residual deficits; Z99.2 Dependence on renal dialysis